=== PATIENT | female | born 1990 | race Caucasian/White ===

== ENCOUNTER → 2017-11-06 | Outpatient (CLI) | payer BC | LOC: COL.RAD 09:06 | DX: K82.8 Other specified diseases of gallbladder (principal); K80.20 Calculus of gallbladder without cholecystitis without obstruction | CPT/HCPCS: A9537 ==

== ENCOUNTER 2017-12-19 06:07 | Day surgery (SDC) | payer BC ==
[~2017-12-19] VITALS: Ht 170.2 cm; Wt 67.1 kg
[2017-12-19] VITALS (8 sets, daily range): BP systolic 102–114; BP diastolic 65–75; PULSE 65–80; TEMP 98
[2017-12-19] MEDS ORDERED: MOTRIN 800800 MG/TAB PO (07:39)
[2017-12-19] MEDS ORDERED: TYLENOL 500MG500 MG PO (07:39)
[2017-12-19] MEDS ORDERED: MULTIPLE VITAMI1 CAP PO (07:42)
[2017-12-19] MEDS ORDERED: NORCO 325 MG-51 TAB PO (09:31)
== END 2017-12-19 12:38 | disposition home or self-care (01) ==
LOC: SDCO 06:07
DX: K80.10 Calculus of gallbladder with chronic cholecystitis without obstruction (principal); J45.909 Unspecified asthma, uncomplicated; Z88.8 Allergy status to other drugs, medicaments and biological substances; Z80.3 Family history of malignant neoplasm of breast; Z80.42 Family history of malignant neoplasm of prostate; Z80.8 Family history of malignant neoplasm of other organs or systems
CPT/HCPCS: J0690; J1100; J1170; J1885; J2405; J2550; J2704; J2710; J3010; J7120; Q9967

== ENCOUNTER → 2021-07-29 | Outpatient (CLI) | payer BC ==
[~2021-07-29] MED LIST: MOTRIN 800800 MG/TAB PO; MULTIPLE VITAMI1 CAP PO; NORCO 325 MG-51 TAB PO; TYLENOL 500MG500 MG PO
== END ==
LOC: MC.RAD 06:56
DX: N60.12 Diffuse cystic mastopathy of left breast (principal); N60.11 Diffuse cystic mastopathy of right breast

== ENCOUNTER → 2022-01-27 | Outpatient (CLI) | payer BC | LOC: MC.RAD 09:03 | DX: N60.02 Solitary cyst of left breast (principal); N60.01 Solitary cyst of right breast ==

== ENCOUNTER → 2022-02-08 | Outpatient (CLI) | payer BC | LOC: MC.RAD 09:47 | DX: N63.20 Unspecified lump in the left breast, unspecified quadrant (principal) ==